=== PATIENT | female | born 1990 ===

== ENCOUNTER 2020-12-16 09:22 | Emergency (ER) | payer OTHER ==
[~2020-12-16] VITALS: Ht 157.5 cm; Wt 70.8 kg
[2020-12-16] MEDS ORDERED: ZITHROMAX500 MG PO (11:09)
[2020-12-16] MEDS ORDERED: IVERMECTIN3 MG PO (11:09)
[2020-12-16] MEDS ORDERED: MEDROLPACK PO (11:09)
[2020-12-16] MEDS ORDERED: TUSNEL LIQUID178 ML PO (11:09)
== END 2020-12-16 11:24 | disposition home or self-care (01) ==
LOC: ER 09:22
DX: U07.1 COVID-19 (principal); B34.9 Viral infection, unspecified